=== PATIENT | male | born 1980 | race Caucasian/White ===

== ENCOUNTER 2017-03-17 16:02 | Emergency (ER) | payer SELFPAY ==
--- NOTE | ~2017-03-17 | ER ---
PATIENT'S NAME: ANTONI MAIN [facility] AGE: 36 Y [address] ROOM: [place] [address] LOCATION: [facility] ADMIT DATE: 03/17/2017 ER/Outpatient Report DISCHARGE DATE: 03/17/2017 FAMILY PHYSICIAN: Physician, Unknown ATTENDING PHYSICIAN: Muna Us Time of Evaluation: 1615 hours. HISTORY OF PRESENT ILLNESS: The patient is a 36-year-old male, who was brought in by the [facility] for medical clearance. The patient was arrested for driving on a suspended license, then following his admission to nursing home he started having severe anxiety and admitted to smoking meth last night. Denied any other drug use. ALLERGIES: PENICILLIN. CURRENT MEDICATIONS: Omeprazole. MEDICAL HISTORY: Includes GERD plus substance abuse. SURGERIES: None. SOCIAL HISTORY: Recent use of marijuana and meth. Denies alcohol. REVIEW OF SYSTEMS: GENERAL: Denies any recent illness or fevers. HEENT: Denies any recent falls, head injuries, stiff neck. RESPIRATORY: No cough or wheezing. CARDIOVASCULAR: No chest pain. GASTROINTESTINAL: Denies any vomiting. PHYSICAL EXAMINATION: VITAL SIGNS: He had a blood pressure 150/66, his temperature was 98.4, his respiratory rate 24, his initial pulse was 117, his O2 sats 100%. GENERAL APPEARANCE: White male. He was quite anxious, hyperventilating. HEENT: Head: Atraumatic. Eyes: PERRL. No icterus. Nose: Septum midline. Mouth: Oral membranes moist. NECK: No jugular venous distention. LUNGS: Sounded clear peripherally. PATIENT'S NAME: ANTONI MAIN [facility] AGE: 36 Y [address] ROOM: [place] [address] LOCATION: [facility] ADMIT DATE: 03/17/2017 ER/Outpatient Report DISCHARGE DATE: 03/17/2017 FAMILY PHYSICIAN: Physician, Unknown ATTENDING PHYSICIAN: Muna Us HEART: Slight tachycardia was noted but no murmurs. ABDOMEN: Soft and nontender. SKIN: Warm and dry. LABORATORY DATA AND X-RAYS: CBC: White count 9.9, his hemoglobin 14.3. CMS: Potassium was low at 3.0. Alcohol was less than 0.010. His acetaminophen and salicylate level were not elevated. ASSESSMENT: 1. Medical clearance for nursing home. 2. History of methamphetamine use. PLAN: The patient was observed in the emergency room for at least an hour. His pulse rate came down. His anxiety subsided. The patient was unable to give us a urine for drug screen, so he was released to be [facility]. Advised just observation. If they have any concerns to give us a call. SARABJIT MCMULLEN FOR MD BELL IZAGUIRRE/gema /[id number] d: 03/25/[id number] t: 03/30/17 1009, OUTPATIENT REPORT
[2017-03-17 16:57] LABS: BASOPHIL % 0.4 %; EOSINOPHIL # 0.1 K/uL (0.0-0.5); EOSINOPHIL % 0.6 %; HEMATOCRIT 42.1 % (37.0-53.0); HEMOGLOBIN 14.3 g/dL (12.0-17.0); IMMATURE GRANULOCYTE % 0.4 %; LYMPHOCYTE # 2.5 K/uL (0.8-4.0); LYMPHOCYTE % 24.9 %; MCH 29.4 pg (27.0-34.0); MCV 86.4 fl (83.0-98.0); MONOCYTE % 10.4 %; MPV 9.1 fl (9.4-12.4); NEUTROPHIL # (ANC) 6.3 K/uL (1.4-9.0); NEUTROPHIL % 63.3 %; NRBC % 0 /100WBC (0-0.00); PLATELET COUNT 262 K/uL (150-450); RBC 4.87 M/uL (4.00-6.00); WBC 9.9 K/uL (4.0-11.0)
[2017-03-17 17:21] LABS: ALBUMIN 4.1 gm/dL (3.5-5.0); ALK PHOS 79 IU/L (33-138); ALT 20 IU/L (12-78); AST 17 IU/L (10-40); BLOOD UREA NITROGEN 16 mg/dL (6-24); CALCIUM 8.5 mg/dL (8.5-10.5); CHLORIDE 107 mMol/L (96-110); CO2 22 mMol/L (22-32); CREATININE 1.2 mg/dL (0.6-1.3); SODIUM 140 mMol/L (135-145); TOTAL BILIRUBIN 1.1 mg/dL (0.0-1.5)
== END 2017-03-17 17:39 | disposition disaster alternative care site (69) ==
LOC: GMED 16:02
PROVIDERS: Family Medicine
DX: Z02.89 Encounter for other administrative examinations (principal); F15.90 Other stimulant use, unspecified, uncomplicated; F41.9 Anxiety disorder, unspecified; K21.9 Gastro-esophageal reflux disease without esophagitis; Z88.0 Allergy status to penicillin; Z79.899 Other long term (current) drug therapy
CPT/HCPCS: G0480

== ENCOUNTER → 2017-03-17 | Outpatient (CLI) | payer SELFPAY | END | disposition disaster alternative care site (69) | LOC: GAMB 15:52 | DX: T50.901A Poisoning by unspecified drugs, medicaments and biological substances, accidental (unintentional), initial encounter (principal); Z88.0 Allergy status to penicillin | CPT/HCPCS: A0425; A0427 ==